=== PATIENT | female | born 1965 | race Caucasian/White ===

== ENCOUNTER → 2016-09-28 | Outpatient (CLI) | payer MEDICARE, MEDICAID ==
[2015-04-06 06:05] VITALS: BP 112/75
[~2016-09-28] MED LIST: CEPH-263 PO; CIPR500T PO; DOCU-27 PO; ESCI10TA PO; FLUT1DIS5 IH; Hydrocodone Bit/Acetaminophen PO; METR500T4 PO; POLY17PO5 PO; SIMV40TA3 PO
--- NOTE | 2016-09-28 14:48 | RAD ---
DATE: 09/28/2016 EXAM: MAMMO [facility] LT HISTORY: 6 month follow-up COMPARISON: A screening examination 02/02/2016. Note is made of the diagnostic examination 02/11/2016 This study was interpreted with the benefit of Computerized Aided Detection (CAD). FINDINGS: The breast parenchyma Is heterogeneiously dense, which could reduce sensitivity of mammography. Breast parenchyma level C. Punctate calcifications are seen just medial to the left breast. The appearance is similar to the previous examinations. There has not been a significant change. They do appear, however, more pronounced than on a study 12/29/2014. The calcifications remain indeterminate. Biopsy should be considered. IMPRESSION: Indeterminate calcifications left breast. Biopsy should be considered. The recommendation for biopsy was to be communicated by the technologist performing the examination to the patient. This examination was interpreted off site. BI-RADS CATEGORY: 4 SUSPICIOUS ABNORMALITY-BIOPSY SHOULD BE CONSIDERED RECOMMENDED FOLLOW-UP: BIO BIOPSY RECOMMENDED PQRS compliance statement: Patient information was entered into a reminder system with a target due date soon for the next mammogram. Mammography is a sensitive method for finding small breast cancers, but it does not detect them all and is not a substitute for careful clinical examination. A negative mammogram does not negate a clinically suspicious finding and should not result in delay in biopsying a clinically suspicious abnormality. "Our facility is accredited by the [employer] Mammography Program."
== END | disposition home or self-care (01) ==
LOC: MAMMO 13:12
PROVIDERS: ATTEND Family Medicine
DX: R92.1 Mammographic calcification found on diagnostic imaging of breast (principal)
CPT/HCPCS: G0206; G0279; 77061; 77065

== ENCOUNTER → 2017-01-12 | Outpatient (CLI) | payer MEDICARE, MEDICAID ==
[2015-04-06 06:05] VITALS: BP 112/75
[~2017-01-12] MED LIST changes: +DOCU-109 PO; -DOCU-27 PO; -ESCI10TA PO; +ESCITALOPRAM OX10 MG PO; +IOHEXOL 240 MG/ML 50ML VIAL. ONE; +IOHEXOL 240 MG/ML 50ML VIAL. PO ONE; +IOHEXOL 300 MG/ML 75 ML VIAL. IV ONE; -METR500T4 PO; +METR500T8 PO
[2017-01-12] MEDS: IOHEXOL 300 MG/ML 75 ML VIAL. IV ONE (17:19)
--- NOTE | 2017-01-13 10:22 | RAD ---
CT abdomen and pelvis with contrast 01/12/2017 Clinical indication: Abdominal pain, diarrhea intermittently for 2 years. Comparison: CT abdomen and pelvis April 04, 2015. Technique: Multiple CT images were obtained of the abdomen and pelvis following uneventful intravenous administration of 75 mL Omnipaque 300. Coronal and sagittal reformations were obtained. PQRS Compliance Statement: One or more of the following individualized dose reduction techniques were utilized for this examination: 1. Automated exposure control 2. Adjustment of the mA and/or kV according to patient size 3. Use of iterative reconstruction technique Findings: Abdomen and pelvis: Heart size is normal. Tiny calcified granuloma in the left lung base. Liver, gallbladder, adrenal glands and pancreas are within normal limits. There are multiple calcified splenic granulomas. There is a stable 8 mm fat-containing lesion in the inferior pole the right kidney most compatible with benign angiomyolipoma. There is a stable 5 mm fat-containing lesion inferior pole of the left kidney also compatible with benign angiomyolipoma. No collecting system dilatation. Abdominal aorta is normal in caliber. Major portal, splenic and visualized upper superior mesenteric veins are widely patent. No retroperitoneal or mesenteric lymphadenopathy. No abdominal free fluid. Small and large bowel loops are normal in caliber without obstruction. Mildly distended and unopacified urinary bladder unremarkable. Uterus is present. No iliac or inguinal lymphadenopathy. No pelvic free fluid. There are no destructive osseous lesions. Impression: No CT etiology for patient's reported abdominal pain and diarrhea.
== END | disposition home or self-care (01) ==
LOC: CT 15:40
PROVIDERS: ATTEND Family Medicine
DX: R10.84 Generalized abdominal pain (principal); R19.7 Diarrhea, unspecified
CPT/HCPCS: 74177; Q9966; Q9967

== ENCOUNTER 2017-04-30 17:40 | Inpatient (IN) | payer MEDICARE, MEDICAID ==
[~2017-04-30] VITALS: Ht 162.6 cm; Wt 138.6 kg
[~2017-04-30 17:40] MED LIST changes: -IOHEXOL 240 MG/ML 50ML VIAL. ONE; -IOHEXOL 240 MG/ML 50ML VIAL. PO ONE; -IOHEXOL 300 MG/ML 75 ML VIAL. IV ONE
--- NOTE | 2017-04-30 18:58 | PHYS DOC ---
Past History Past Medical History: No Pertinent History Past Surgical History: No Surgical History Smoking: Non-smoker Alcohol Use: None Drug Use: None Adult General Chief Complaint Chief Complaint: SHORTNESS OF BREATH HPI HPI Patient is a 52-year-old female who presents to the ED with complaints of not feeling well. Patient has been "exhausted" for quite some time. She was sick with a sinus infection, then got a virus, then her "colitis" flared up and she has had diarrhea off-and-on. She can't eat much because of this. She's lost 20 pounds. She has abdominal pain and shaking when she is having diarrhea. Denies nausea or vomiting. She has not had diarrhea for a couple of days. Starting today, she "can't catch her breath". She has had chills. She feels short of breath. She does have a history of asthma but it doesn't feel like that. She's never had anything like this before. She also has a pressure type discomfort under her left rib cage. Also has never had that before. No exacerbating or alleviating factors. Patient denies cardiac history. She used to smoke, quit 17 years ago. Negative hypertension, she takes medication for "early diabetes". She does not know about her cholesterol. She had a colonoscopy in 2014 and was told she has "colitis", she does not know what type of colitis. Also has acid reflux. Patient has had craniotomy in the past for Chiari malformation. PCP Dr. Mohan Review of Systems Review of Systems Constitutional: She has felt feverish and has had chills Eyes: Denies change in visual acuity, redness, or eye pain [] HENT: Denies nasal congestion or sore throat [] Respiratory: As in history of present illness Cardiovascular: Pain under the left ribs as in history of present illness GI: As in history of present illness, she denies any blood in the stool : Denies dysuria or hematuria [] Musculoskeletal: Denies back pain or joint pain [] Integument: Denies rash or skin lesions [] Neurologic: Denies headache, focal weakness All other systems were reviewed and found to be within normal limits, except as documented in this note. Allergies Allergies Allergies Coded Allergies Type Severity Reaction Last Updated Verified morphine Allergy Intermediate 04/30/17 Yes prednisone Allergy Intermediate 04/30/17 Yes Physical Exam Physical Exam Constitutional: Well developed, well nourished, no acute distress, non-toxic appearance. Pulse ox on room air 99-100%. Not tachycardic. She does appear short of air or dyspneic when talking. HENT: Normocephalic, atraumatic, bilateral external ears normal, nose normal. [] Eyes: conjunctiva normal, no discharge. [] Neck: Normal range of motion, no stridor. [] Cardiovascular:Heart rate regular rhythm, no murmur [] Lungs & Thorax: Bilateral breath sounds clear to auscultation , no wheezes, no rales Abdomen: Bowel sounds normal, soft, no tenderness, no masses, no pulsatile masses. [] Skin: Warm, dry, no erythema, no rash. [] Extremities: No tenderness, no cyanosis, no clubbing, ROM intact, no edema. [] Neurologic: Alert and oriented X 3, normal motor function, no focal deficits noted. [] Current Patient Data Vital Signs Vital Signs Date Time Temp Pulse Resp B/P (MAP) Pulse Ox O2 Delivery O2 Flow Rate FiO2 04/30/17 18:01 98.5 70 20 100 Room Air EKG EKG 12-lead EKG read by me. Sinus rhythm. Heart rate 74. There are no acute ST or T wave changes indicative of ischemia or infarction. No STEMI. 1750[] Radiology/Procedures Radiology/Procedures One view portable chest x-ray read by me. Heart size is normal. Lung becker are clear. No acute findings.[] CT angiography of the chest read by the radiologist who called me with the results. Positive for pulmonary emboli. Course & Med Decision Making Course & Med Decision Making Pertinent Labs and Imaging studies reviewed. (See chart for details) 52-year-old female who has been sick for days or weeks with feeling exhausted and some diarrhea off and on with a history of "colitis". Today she began to feel short of air, can't catch her breath. Pulse ox on room air is 100% here in the ED. We will check some labs, EKG, chest x-ray. I am concerned about her complaints of pressure type pain under her left rib cage. Discussed this with the patient who is agreeable to this evaluation. EKG, chest x-ray, cardiac enzymes unrevealing. Patient's d-dimer is elevated. PE study was done which is positive for PE. Patient remained stable in the emergency department, visiting with family. Pulse ox on room air remained in the high 90s to 100%. Patient was treated with a dose of Lovenox. I discussed the case with Dr. Gannon, who will admit the patient. I wrote bridge orders. [] Dragon Disclaimer Dragon Disclaimer This electronic medical record was generated, in whole or in part, using a voice recognition dictation system. Departure Departure: Impression: Primary Impression: Pulmonary emboli Disposition: ADMITTED INPATIENT Admitting Physician: Cindy Gannon Condition: STABLE Referrals: YAZ MOHAN DO (PCP) REGGIE LAWRENCE MD Apr 30, 2017 18:58
[2017-04-30 19:03] LABS: BASO # 0.1 x10^3/uL (0.0-0.2); BASO % 1 % (0-3); EOS # 0.2 x10^3/uL (0.0-0.7); EOS % 2 % (0-3); HEMATOCRIT 36.5 % (36.0-47.0); LYMPH # 3.8 x10^3/uL (1.0-4.8); LYMPH % 39 % (24-48); MEAN CORPUSCULAR HEMOGLOBIN 27 pg (25-35); MEAN CORPUSCULAR HGB CONC 33 g/dL (31-37); MEAN CORPUSCULAR VOLUME 82 fL (79-100); MONO # 0.7 x10^3/uL (0.0-1.1); MONO % 7 % (0-9); NEUT # 4.9 x10^3uL (1.8-7.7); NEUT % 51 % (31-73); PLATELET COUNT 550 x10^3/uL (140-400); RED BLOOD COUNT 4.44 x10^6/uL (3.50-5.40); RED CELL DISTRIBUTION WIDTH 14.5 % (11.5-14.5); WHITE BLOOD COUNT 9.7 x10^3/uL (4.0-11.0)
--- NOTE | 2017-04-30 19:14 | EKG ---
[address] [address] Test Date: 2017-04-30 Test Time: 17:50:45 Pat Name: DESTINEE SANTOS Department: Room: Gender: F [employer]: CHRIS : 1965 Requested By: REGGIE LAWRENCE Order Number: [id number] Reading MD: Lamberto Trujillo MD Measurements Intervals Gepp Rate: 74 P: 35 WA: 136 QRS: -12 QRSD: 86 T: -5 QT: 420 QTc: 467 Interpretive Statements SINUS RHYTHM NON-SPECIFIC ST/T CHANGES Electronically Signed On 05-02-2017 16:35:13 [employer]SULT[employer] by Lamberto Trujillo MD
[2017-04-30 19:23] LABS: ALBUMIN 3.2 g/dL (3.4-5.0); ALBUMIN/GLOBULIN RATIO 0.7 (1.0-1.7); ALK PHOS 83 U/L (46-116); ALT (SGPT) 17 U/L (14-59); ANION GAP 10 (6-14); AST (SGOT) 15 U/L (15-37); BLOOD UREA NITROGEN 14 mg/dL (7-20); BUN/CREATININE RATIO 14 (6-20); CALCIUM 9.3 mg/dL (8.5-10.1); CARBON DIOXIDE 25 mmol/L (21-32); CHLORIDE 104 mmol/L (98-107); CREATINE KINASE 40 U/L (26-192); GFR 58.5; GLUCOSE 120 mg/dL (70-99); LIPASE 133 U/L (73-393); MAGNESIUM 2.1 mg/dL (1.8-2.4); POTASSIUM 3.4 mmol/L (3.5-5.1); SODIUM 139 mmol/L (136-145); TOTAL BILIRUBIN 0.6 mg/dL (0.2-1.0); TOTAL PROTEIN 7.8 g/dL (6.4-8.2)
[2017-04-30] MEDS ORDERED: IV NORMAL SALINE 1,000ML 1,000 ML IV ONE (19:45)
[2017-04-30] MEDS ORDERED: IOHEXOL 300 MG/ML 75 ML VIAL. IV ONE (20:15)
[2017-04-30] MEDS ORDERED: CONTRAST GIVEN MC PRN (20:15)
--- NOTE | 2017-04-30 20:58 | RAD ---
CT angiography chest with contrast HISTORY: Shortness of breath, elevated d-dimer, left-sided chest pain. TECHNIQUE: Helical CT imaging of the chest with 3-D MIP reconstructions of the pulmonary arteries to assess for emboli with 75 mL Omnipaque 300 intravenous contrast. FINDINGS: Filling defect right upper lobe pulmonary artery embolus to the lateral apex axial images 36-41 and coronal images 61-62 with additional embolus within the branches to the anterior segment axial images 44-47. No large central pulmonary artery embolus. Heart size normal. Thoracic aorta and esophagus unremarkable. No adenopathy in the chest. No adenopathy in the chest. Groundglass densities lower lobe likely atelectasis mosaic attenuation throughout the lungs could be indicative of areas of air trapping. Calcified granulomas left lower lobe. No pneumothorax. No pleural effusions. Bones unremarkable. IMPRESSION: 1. Small pulmonary artery emboli to the right upper lobe as described above. 2. Mosaic attenuation of the lungs with areas of lucency surrounded by groundglass atelectasis, could be indicative of small airways trapping from asthma or bronchiolitis. Critical results called to Dr. Lynn at 8:54 PM February 28, 2017. Exposure: One or more of the following individualized dose reduction techniques were utilized for this examination: 1. Automated exposure control 2. Adjustment of the mA and/or kV according to patient size 3. Use of iterative reconstruction technique Electronically signed by: Kevin Alicea MD (04/30/2017 8:55 PM) [facility]
[2017-04-30] MEDS ORDERED: ENOXAPARIN ** NOTE DOSE ** SYRINGE SQ ONE (21:00)
[2017-04-30 22:25] VITALS: BP 105/67
[2017-04-30 22:26] VITALS: BP 105/67
[2017-04-30] MEDS ORDERED: GABA-586 PO (23:08)
[2017-04-30] MEDS ORDERED: METF500T4 PO (23:08)
[2017-04-30] MEDS ORDERED: OMEP40CA5 PO (23:08)
[2017-04-30] MEDS ORDERED: DULO30CA2 PO (23:13)
[2017-05-01] MEDS: ALBUTEROL SULFATE 2.5 MG/3 ML NEBU. NEB SCH ×3 (05:42→16:00)
[2017-05-01 06:23] VITALS: BP 108/60
[2017-05-01] MEDS ORDERED: POTASSIUM CHLORIDE 20 MEQ TABLET.ER. PO ONE (06:30)
[2017-05-01 06:49] LABS: HEMATOCRIT 35.2 % (36.0-47.0); HEMOGLOBIN 11.7 g/dL (12.0-15.5); RED BLOOD COUNT 4.28 x10^6/uL (3.50-5.40); RED CELL DISTRIBUTION WIDTH 14.8 % (11.5-14.5); WHITE BLOOD COUNT 8.7 x10^3/uL (4.0-11.0)
[2017-05-01 06:59] LABS: ALBUMIN 3.3 g/dL (3.4-5.0); ALBUMIN/GLOBULIN RATIO 0.8 (1.0-1.7); CALCIUM 9.3 mg/dL (8.5-10.1); GFR 58.5; POTASSIUM 3.8 mmol/L (3.5-5.1); TOTAL BILIRUBIN 0.9 mg/dL (0.2-1.0); TOTAL PROTEIN 7.6 g/dL (6.4-8.2)
[2017-05-01] MEDS ORDERED: PANTOPRAZOLE 40 MG TABLET. PO SCH (07:30)
[2017-05-01] MEDS ORDERED: BUDESONIDE 0.5 MG/2 ML NEBU NEB SCH (08:00)
--- NOTE | 2017-05-01 08:27 | RAD ---
EXAM: Chest one view. HISTORY: Shortness of breath and chills. COMPARISON: 02/14/2012. FINDINGS: A frontal view of the chest is obtained. A marker on the left partially obscures the region of the left midlung. There are no confluent infiltrates. There is no pneumothorax or pleural effusion. The heart is not enlarged. IMPRESSION: 1. No confluent infiltrates.
[2017-05-01] MEDS ORDERED: DULoxetine HCL 30 MG CAPSULE.DR PO SCH (09:00)
[2017-05-01] MEDS ORDERED: ENOXAPARIN ** NOTE DOSE ** SYRINGE SQ SCH (09:00)
[2017-05-01] MEDS ORDERED: NON FORMULARY ITEM (Fluticasone/Salmeterol (Advair 500-50 Diskus) 1 EACH) IH SCH (09:00)
[2017-05-01] MEDS: GABAPENTIN 300 MG CAPSULE. PO SCH ×2 (09:03→13:17)
[2017-05-01 11:25] VITALS: BP 117/70
[2017-05-01 16:09] VITALS: BP 121/64
[2017-05-01] MEDS ORDERED: RIVA10TA PO (16:26)
[2017-05-01] MEDS ORDERED: RIVAROXABAN 15 MG TABLET. PO ONE (17:00)
--- NOTE | 2017-05-01 17:36 | HP ---
ADMIT DATE: HISTORY OF PRESENT ILLNESS: This is a 52-year-old female patient who came to the Emergency Room complaining of shortness of breath, feeling tired, exhausted and she was sick with sinus infection ____ her colitis flared up. She has had diarrhea off and on for almost a month. She cannot eat much because of this, she has lost about 20 pounds; however, her diarrhea has stopped about 2 days ago and she started having difficulty breathing and in her words she cannot catch her breath. She has had some chills. She feels short of breath. She does have history of bronchial asthma, but she does not feel like that. She has never had anything like this before. She has some discomfort in her chest, but has never had this before. There is nothing alleviating or exacerbating this feeling. She was evaluated in the Emergency Room. Her D-dimer was slightly elevated and she has had a CT scan of the chest with PE protocol, which showed that she has small pulmonary artery emboli in the right upper lobe and additional embolus within the branches to the anterior segment. No large central pulmonary artery emboli, heart size is normal. She was started on Lovenox 1 mg/kg and was admitted for further evaluation and treatment. PAST MEDICAL HISTORY: Significant for colitis diagnosed about in 2016. She had a colonoscopy done in [facility]. She has bronchial asthma, Chiari malformation and neuropathy of both upper extremities. PAST SURGICAL HISTORY: Significant for Chiari surgery. She had had craniotomy at [facility] for Chiari malformation, esophagogastroduodenoscopy and colonoscopy, breast biopsies and . ALLERGIES: She is allergic to MORPHINE AND PREDNISONE. MEDICATIONS: She is currently on following medications: She is on duloxetine or Cymbalta 30 mg once a day, Advair Diskus 500/50 one inhalation twice a day, gabapentin 300 mg 3 times a day, metformin 500 mg twice a day, omeprazole 40 mg once a day and simvastatin 40 mg at bedtime. FAMILY HISTORY: She has 4 brothers and 1 sister. Her sister has bronchial asthma. One of her brothers has severe osteoarthritis. Her father at age of 87 because of coronary artery disease. Mother is alive at the age of 88 and she has osteoarthritis and Alzheimer disease. SOCIAL HISTORY: She is and has 1 daughter and 1 son. She is an ex-smoker, quit 17 years ago. She does not drink alcohol or use any recreational drugs. Currently, she is disabled secondary to Chiari malformation. REVIEW OF SYSTEMS: The patient denied any blurring of vision, cataract, glaucoma or macular degeneration. Denied any earache, tinnitus or sensorineural deafness. Denied any sore throat, sore tongue, toothache, hoarseness of voice or difficulty swallowing. Denied any nausea, vomiting, but did complain of diarrhea, but no constipation. Denied any hematemesis, melena or hematochezia. Denied any dysuria, frequency or hematuria. Did complain of chest discomfort and shortness of breath, but no cough or phlegm, no diaphoresis. Did have chills, but no rigors, no fever. PHYSICAL EXAMINATION: GENERAL: On arrival to the Emergency Room, she was slightly pale, but no jaundice, cyanosis, or thyromegaly. No jugular venous distension. No limb edema. VITAL SIGNS: Her heart rate was 70, blood pressure was 105/67, temperature was 98.5, respiratory rate 20, and oxygen saturation was 97% on room air. HEENT: Showed normocephalic, atraumatic. NECK: Supple. HEART: Showed normal first and second sounds. No gallop, rub or murmur. CHEST: Clear to auscultation. No crepitation or rhonchi. ABDOMEN: Distended, soft, nontender. NEUROLOGIC: She was awake, alert, responding appropriately, all cranial nerves intact. EXTREMITIES: She moves extremities without difficulty. She ambulates without assistance or assistive device. LABORATORY DATA: While in the Emergency Room, she has had lab work, which showed a white cell count 9700, hemoglobin 12, hematocrit 36, MCV 82 and platelet count 550,000 with normal manual differential. Her chemistry showed a serum sodium 139, potassium 3.4, chloride 104, bicarbonate 25, anion gap of 10, BUN 14, creatinine 1, estimated GFR was 58 mL per minute. Her glucose was 120, calcium 9.3, magnesium was 2.1. Total bilirubin, AST, ALT, alkaline phosphatase were normal. Her total protein was 7.8, albumin 3.2, lipase was 133. Her prothrombin time was 11.6, INR 1.1. D-dimer was 0.72. While in the Emergency Room, she had a chest x-ray done, which showed that there are no confluent infiltrates, no pneumothorax or pleural effusion. The heart is not enlarged. However, the CT angio of the chest showed that there are filling defects in the right upper lobe pulmonary artery to the lateral apex and additional embolus within the branches to the anterior segment. No large central pulmonary artery embolus, heart size is normal, thoracic aorta and esophagus unremarkable. No adenopathy in the chest. There are ground-glass densities lower lobe, likely atelectasis. Mosaic attenuation throughout the lungs could be indicative of areas of air trapping. No pneumothorax and no pleural effusion. ASSESSMENT AND PLAN: The patient was admitted and continued her on medication as well as Lovenox 40 mg subq twice a day. We held her metformin. We will repeat her lab work tomorrow and switch her to either Coumadin or one of the newer anticoagulant and can be discharged home if stable. ALLIE MUÑOZ MD DR: JAVID/kristen JOB#: [id number] / [id number]
--- NOTE | 2017-05-01 19:28 | DS ---
DATE OF DISCHARGE: 05/01/2017 HOSPITAL COURSE: The patient is a 52-year-old female patient who was admitted with shortness of breath, and she was extensively investigated in the Emergency Room. D-dimer was elevated, so underwent CT angio of the chest, which showed that she has at least 2 pulmonary emboli in the right upper lobe, none in the central pulmonary arteries. She was started on Lovenox 140 mg twice a day and did very well. PHYSICAL EXAMINATION: GENERAL: When I saw her this afternoon, she looked well and was clearly in no apparent respiratory distress. On questioning her, denied any chest pain, denied any cough, phlegm or hemoptysis. When I examined her, she looked pale, but no jaundice, cyanosis, or thyromegaly. No jugular venous distension. No limb edema. VITAL SIGNS: Her heart rate was 81, blood pressure was 117/70, temperature was 97.8, respiratory rate 20, and oxygen saturation was 99% on room air. HEAD, EYES, EARS, NOSE AND THROAT: Normocephalic, atraumatic. NECK: Supple. HEART: Showed normal first and second heart sounds. No gallop, rub or murmur. CHEST: Clear to auscultation. No crepitation or rhonchi. ABDOMEN: Markedly distended, soft, nontender. NEUROLOGIC: She is awake, alert, responding appropriately. Cranial nerves intact. EXTREMITIES: She moves extremities without difficulty. She ambulates without assistance or assistive devices. Her intake over the last __ and output were incompletely recorded. LABORATORY DATA: Her white cell count was 8700, hemoglobin 12, hematocrit 35, MCV 82 and platelet count 509,000. Her chemistry showed a serum sodium is 139, potassium 3.8, chloride 103, bicarbonate 26, anion gap of 10, BUN 11, creatinine 1, estimated GFR was 58 mL per minute. Her glucose 124, calcium was 9.3. Her lactic acid is down to 1.5 micromole/liter, calcium was 9.3. Total bilirubin, AST, ALT, alkaline phosphatase were normal. Total protein was 7.6, albumin 3.3. DISCHARGE MEDICATIONS: The patient was discharged home to continue on Xarelto 15 mg twice a day for 21 days, then Xarelto 20 mg once a day for 6 months. She should also continue on her Cymbalta 30 mg once a day, Advair Diskus 500/50 one inhalation twice a day, gabapentin 300 mg 3 times a day, metformin 500 mg p.o. b.i.d., omeprazole 40 mg daily, Simvastatin 40 mg at bedtime. FINAL DISCHARGE DIAGNOSES: Pulmonary embolism for which she is now on Xarelto. Other medical problems include bronchial asthma, morbid obesity, chronic colitis, Chiari malformation, hyperlipidemia, type 2 diabetes. ALLIE MUÑOZ MD DR: JAVID/kristen JOB#: [id number] / [id number]
[2017-05-01] MEDS ORDERED: SIMVASTATIN 40 MG TABLET. PO SCH (21:00)
[2017-05-03] MEDS ORDERED: metFORMIN 500 MG TABLET PO SCH (08:00)
== END 2017-05-01 17:20 | disposition home or self-care (01) | DRG 176 ==
LOC: ER 17:40 → 1 SOUTH 21:17
PROVIDERS: ADMIT Family Medicine; ATTEND Family Medicine
DX: I26.99 Other pulmonary embolism without acute cor pulmonale (principal); E11.40 Type 2 diabetes mellitus with diabetic neuropathy, unspecified; Z68.43 Body mass index [BMI] 50.0-59.9, adult; E66.01 Morbid (severe) obesity due to excess calories; E78.5 Hyperlipidemia, unspecified; J45.909 Unspecified asthma, uncomplicated; K21.9 Gastro-esophageal reflux disease without esophagitis; J32.9 Chronic sinusitis, unspecified; K52.9 Noninfective gastroenteritis and colitis, unspecified; Z82.0 Family history of epilepsy and other diseases of the nervous system; Z82.49 Family history of ischemic heart disease and other diseases of the circulatory system; Z82.5 Family history of asthma and other chronic lower respiratory diseases; Z86.711 Personal history of pulmonary embolism; Z87.891 Personal history of nicotine dependence; Z88.8 Allergy status to other drugs, medicaments and biological substances; Z82.61 Family history of arthritis
CPT/HCPCS: 36415; 71010; 71275; 80053; 82553; 83605; 83690; 83735; 83880; 84484; 85025; 85027; 85379; 85610; 93005; 94640; J1650; J7613; J7626; Q9967; J7030

== ENCOUNTER → 2017-06-07 | Outpatient (CLI) | payer MEDICAID, MEDICARE ==
[~2017-06-07] MED LIST changes: +DULO30CA2 PO; +GABA-586 PO; +IOHEXOL 300 MG/ML 75 ML VIAL. IV ONE; +IOHEXOL 300 MG/ML 75 ML VIAL. ONE; +MECL25TA3 PO; +METF500T4 PO; +OMEP40CA5 PO; +RIVA10TA PO
[2017-06-07 15:08] LABS: BASO # 0.1 x10^3/uL (0.0-0.2); BASO % 1 % (0-3); EOS # 0.4 x10^3/uL (0.0-0.7); EOS % 4 % (0-3); HEMATOCRIT 35.6 % (36.0-47.0); HEMOGLOBIN 11.7 g/dL (12.0-15.5); LYMPH # 3.6 x10^3/uL (1.0-4.8); LYMPH % 32 % (24-48); MEAN CORPUSCULAR HEMOGLOBIN 27 pg (25-35); MEAN CORPUSCULAR HGB CONC 33 g/dL (31-37); MEAN CORPUSCULAR VOLUME 81 fL (79-100); MONO # 0.8 x10^3/uL (0.0-1.1); MONO % 7 % (0-9); NEUT # 6.2 x10^3uL (1.8-7.7); NEUT % 56 % (31-73); PLATELET COUNT 464 x10^3/uL (140-400); RED BLOOD COUNT 4.41 x10^6/uL (3.50-5.40); RED CELL DISTRIBUTION WIDTH 15.2 % (11.5-14.5); WHITE BLOOD COUNT 11.1 x10^3/uL (4.0-11.0)
[2017-06-07 15:23] LABS: ALBUMIN 3.4 g/dL (3.4-5.0); ALBUMIN/GLOBULIN RATIO 0.7 (1.0-1.7); CALCIUM 9.2 mg/dL (8.5-10.1); GFR 58.5; TOTAL BILIRUBIN 0.5 mg/dL (0.2-1.0)
--- NOTE | 2017-06-07 16:29 | RAD ---
Arterial duplex examination of the left upper extremity -Limited study Clinical indications: Left clavicle pain and inferior left neck pain that started today. Findings: Duplex sonography of the left common carotid artery and the left subclavian artery was performed including seals scale evaluation and color flow and waveform spectral analysis. Normal low resistance diastolic waveform is seen within the left common carotid artery peak systolic flow velocity measurement 90 cm/s. Normal high resistance diastolic waveform is seen within the left subclavian artery with a peak systolic flow velocity measurement of 90 cm/s. No flow limiting stenosis or occlusive disease of these 2 arteries is seen. IMPRESSION: No occlusive disease or stenosis of the left subclavian artery or left common carotid artery is seen. No aneurysm is seen.
--- NOTE | 2017-06-07 17:03 | RAD ---
CTA of the chest with and without contrast Clinical indications: Shortness of breath. History of pulmonary embolism. Technique: Noncontrast axial localizer was performed. After IV infusion of a total of 150 cc of Omnipaque 300, helical CT scanning of the chest was performed using the CT pulmonary embolism protocol. A coronal MIP reconstruction was generated. 2 scans had to be performed since there was not adequate opacification of the pulmonary arteries on the initial scan. PQRS Compliance Statement: One or more of the following individualized dose reduction techniques were utilized for this examination: 1. Automated exposure control 2. Adjustment of the mA and/or kV according to patient size 3. Use of iterative reconstruction technique Comparison: April 30, 2017. Findings: No pulmonary embolism is seen today. The previously seen right apical branch pulmonary embolism has resolved. No thoracic aortic dissection or focal aneurysmal dilatation is seen. Cardiomegaly is evident but no pericardial effusion is seen. No enlarged thoracic lymphadenopathy is seen. Bilateral groundglass lung infiltrates are again evident which most likely there is due to atelectasis given the decreased inspiration related to the patient's large body habitus. No lung mass is evident. No lung consolidation with air bronchograms is seen. No pleural effusion or pneumothorax is seen. The proximal brachial tree is patent. No osteolytic process is seen. No adrenal mass is evident. Small subcentimeter angiomyolipoma of the right kidney is seen. IMPRESSION: No pulmonary embolism is evident. The previously seen pulmonary embolism has resolved. Bilateral groundglass lung infiltrates most likely due to atelectasis given the decreased inspiration related to the patient's large body habitus. Cardiomegaly.
== END | disposition home or self-care (01) ==
LOC: LAB 14:26
PROVIDERS: ATTEND Family Medicine
DX: I51.7 Cardiomegaly (principal); R07.2 Precordial pain; R35.8 Other polyuria; M79.601 Pain in right arm; Z86.711 Personal history of pulmonary embolism; Z87.891 Personal history of nicotine dependence
CPT/HCPCS: 36415; 71275; 80053; 83880; 84443; 84484; 85025; 93931; Q9967

== ENCOUNTER → 2017-06-20 | Outpatient (CLI) | payer MEDICARE, OTHER ==
[~2017-06-20] MED LIST changes: -IOHEXOL 300 MG/ML 75 ML VIAL. IV ONE; -IOHEXOL 300 MG/ML 75 ML VIAL. ONE; -MECL25TA3 PO
--- NOTE | 2017-06-20 16:51 | CARD ---
MR#: [id number] Date of Study: 06/20/2017 Ordering Physician: YAZ MOHAN, Referring Physician: YAZ MOAHN, Tech: Toma Huggins [facility] APPROVED REPORT EXAM: Two-dimensional and M-mode echocardiogram with Doppler and color Doppler. Other Information Quality : Technically Difficult Technically limited study due to body habitus. INDICATION Dyspnea Hx: Recent Pulmonary Embolus 2D DIMENSIONS Left Atrium(2D)3.6 (1.6-4.0cm)IVSd1.0 (0.7-1.1cm) Aortic Root(2D)3.5 (2.0-3.7cm)LVDd6.0 (3.9-5.9cm) LVOT Diameter2.1 (1.8-2.4cm)PWd1.1 (0.7-1.1cm) LVDs3.4 (2.5-4.0cm)FS (%) 37.0 % SV129.5 ml Aortic Valve AoV Peak Darin.141.4cm/sAoV VTI32.1cm AO Peak GR.8.0mmHgLVOT Peak Darin.80.2cm/s AO Mean GR.5mmHgAVA (VMAX)2.00cm2 Mitral Valve MV E Zmnkaesu84.8cm/sMV DECEL LIIA675vq MV A Yejodnax19.0cm/sE/A Ratio1.0 Pulmonary Valve PV Peak Qzzjajpu57.8cm/sPV Peak Grad.4mmHg LEFT VENTRICLE The Left Ventricle is mildly dilated. There is borderline concentric left ventricular hypertrophy. Th e left ventricular systolic function is normal and the ejection fraction is within normal range. The Ejection Fraction is 60-65%. There is normal LV segmental wall motion. RIGHT VENTRICLE The right ventricle is normal size. There is normal right ventricular wall thickness. The right ventr icular systolic function is normal. ATRIA The left atrium size is normal. The right atrium size is normal. The interatrial septum is intact wit h no evidence for an atrial septal defect or patent foramen ovale as noted on 2-D or Doppler imaging. AORTIC VALVE The aortic valve is probably trileaflet. Doppler and Color Flow revealed trace aortic regurgitation. There is no significant aortic valvular stenosis. MITRAL VALVE The mitral valve is normal in structure and function. There is no evidence of mitral valve prolapse. There is no mitral valve stenosis. Doppler and Color-flow revealed trace mitral regurgitation. TRICUSPID VALVE The tricuspid valve is normal in structure and function. Doppler and Color Flow revealed trace tricus pid regurgitation. PULMONIC VALVE The pulmonary valve is normal in structure and function. Doppler and Color Flow revealed no pulmonic valvular regurgitation. GREAT VESSELS The aortic root is normal in size. The ascending aorta is normal in size. The IVC is normal in size a nd collapses >50% with inspiration. PERICARDIAL EFFUSION There is no evidence of significant pericardial effusion. Critical Notification Critical Value: No <Conclusion> The Left Ventricle is mildly dilated. The left ventricular systolic function is normal and the ejection fraction is within normal range. The Ejection Fraction is 60-65%. There is borderline concentric left ventricular hypertrophy. There is no significant aortic valvular stenosis. Doppler and Color Flow revealed trace aortic regurgitation. Doppler and Color-flow revealed trace mitral regurgitation. Doppler and Color Flow revealed trace tricuspid regurgitation. There is no evidence of significant pericardial effusion. Signed by : Vishal Gonzalez MD Electronically Approved : 06/20/2017 16:51:20
== END | disposition home or self-care (01) ==
LOC: ECHO 14:09
PROVIDERS: ATTEND Family Medicine
DX: I08.2 Rheumatic disorders of both aortic and tricuspid valves (principal); Z86.711 Personal history of pulmonary embolism
CPT/HCPCS: 93306

== ENCOUNTER 2017-07-07 15:58 | Emergency (ER) | payer MEDICARE ==
[2017-07-07 16:05] VITALS: BP 152/84
[2017-07-07] MEDS ORDERED: MECLIZINE 12.5 MG TABLET. PO PRN (16:30)
--- NOTE | 2017-07-07 16:42 | EKG ---
[address] [address] Test Date: 2017-07-07 Test Time: 16:38:44 Pat Name: DESTINEE SANTOS Department: Room: Gender: F Inclusion Specialist: : 1965 Requested By: VAUGHN JERRY Order Number: [id number] Reading MD: Lamberto Trujillo MD Measurements Intervals [place] Rate: 68 P: 0 NH: 146 QRS: -15 QRSD: 84 T: -2 QT: 428 QTc: 460 Interpretive Statements SINUS RHYTHM NON-SPECIFIC ST/T CHANGES Electronically Signed On 07-11-2017 17:14:18 SENIOR VICE PRESIDENT by Lamberto Trujillo MD
--- NOTE | 2017-07-07 16:44 | PHYS DOC ---
Past History Additional Past Medical Histor: cardiomegaly, colitis, PE Past Surgical History: No Surgical History Smoking: Non-smoker Alcohol Use: None Drug Use: None Adult General Chief Complaint Chief Complaint: DIZZY/LIGHT HEADED [facility] 52-year-old female patient complaining of episodes of electrical shock feeling to her head since yesterday afternoon that repeated frequently as a dizziness feeling without any headache. Patient complaining of dizziness with episode of electrical shock to her head without headache, nausea, fever and chills, focal neuro deficit. Patient denies urinary symptom, vomiting and diarrhea, urinary symptom. Patient states her dizziness started when she was standing up but right now even with supine position she feels dizzy. Patient states she had mild episodes of dizziness previously but since yesterday it is getting worse than usual. Patient states she has had chronic chest pain and shortness of breath since April 2017 after she diagnosed with cardiomegaly and PE. Review of Systems Review of Systems Constitutional: Denies fever or chills [] Eyes: Denies change in visual acuity, redness, or eye pain, reports blurred vision [] HENT: Denies nasal congestion or sore throat [] Respiratory: Denies cough or shortness of breath [] Cardiovascular: No additional information not addressed in HPI [] GI: Denies abdominal pain, nausea, vomiting, bloody stools or diarrhea [] : Denies dysuria or hematuria [] Musculoskeletal: Denies back pain or joint pain [] Integument: Denies rash or skin lesions [] Neurologic: Denies headache, focal weakness or sensory changes , reports dizziness[] Endocrine: Denies polyuria or polydipsia [] All other systems were reviewed and found to be within normal limits, except as documented in this note. Current Medications Current Medications Current Medications Medications (Trade) Dose Ordered Sig/Amador Start Time Stop Time Status Last Admin Dose Admin Meclizine HCl (Antivert) 25 mg PRN Q6HRS PRN 07/07/17 16:30 Allergies Allergies Allergies Coded Allergies Type Severity Reaction Last Updated Verified morphine Allergy Intermediate 04/30/17 Yes prednisone Allergy Intermediate 04/30/17 Yes Physical Exam Physical Exam Constitutional: Well developed, well nourished, mild distress, non-toxic appearance, morbidly obese. [] HENT: Normocephalic, atraumatic, bilateral external ears normal, oropharynx moist, no oral exudates, nose normal. [] Eyes: PERRLA, EOMI, conjunctiva normal, no discharge. [] Neck: Normal range of motion, no tenderness, supple, no stridor. [] Cardiovascular:Heart rate regular rhythm, no murmur [] Lungs & Thorax: Bilateral breath sounds clear to auscultation [] Abdomen: Bowel sounds normal, soft, no tenderness, no masses, no pulsatile masses. [] Skin: Warm, dry, no erythema, no rash. [] Back: No tenderness, no CVA tenderness. [] Extremities: No tenderness, no cyanosis, no clubbing, ROM intact, no edema. [] Neurologic: Alert and oriented X 3, normal motor function, normal sensory function, no focal deficits noted. [] Psychologic: Affect normal, judgement normal, mood normal. [] EKG EKG [EKG interpreted by me. EKG at 1638 showed normal sinus rhythm at rate of 68, left mckay axis, poor R-wave progress in anteroseptal leads, no ST and T-wave elevation] Radiology/Procedures Radiology/Procedures CT head and chest x-ray reported by radiologist as unremarkable Course & Med Decision Making Course & Med Decision Making Pertinent Labs and Imaging studies reviewed. (See chart for details) Evaluation of patient in ER showed 52-year-old female patient with history of PE on Xarelto complaining of episodes of dizziness since yesterday that was worse than her previous episodes of dizziness. Patient had unremarkable physical exam except for morbid obesity. CT head, chest x-ray, EKG, labs was unremarkable. Patient felt better with meclizine. Plan discharge patient home with diagnosis of benign positional vertigo. Prescription for meclizine was given and patient instructed to follow-up with her primary care physician. Dragon Disclaimer Dragon Disclaimer This electronic medical record was generated, in whole or in part, using a voice recognition dictation system. Departure Departure: Impression: Primary Impression: Benign positional vertigo Additional Impression: Morbid obesity Disposition: HOME, SELF-CARE (at 1810) Condition: IMPROVED Referrals: YAZ MOHAN DO (PCP) Patient Instructions: Benign Positional Vertigo Additional Instructions: Drink plenty of liquids Follow-up with your primary care physician in 3-5 days Return to ER if not getting better Scripts Meclizine Hcl (MECLIZINE HCL) 25 Mg Tablet 1 TAB PO PRN TID, #30 TAB Prov: VAUGHN JERRY MD 07/07/17 Problem Qualifiers VAUGHN JERRY MD Jul 07, 2017 16:44
--- NOTE | 2017-07-07 17:00 | RAD ---
Portable chest, 07/07/2017: History: Dizziness Comparison is made to a study from 04/30/2017. The heart size and pulmonary vascularity are normal. No pulmonary infiltrates are seen. There is no evidence of pleural fluid. IMPRESSION: No acute cardiopulmonary abnormality is detected.
--- NOTE | 2017-07-07 17:03 | RAD ---
Indication: Dizziness today. Technique: Noncontrast CT head was obtained. Comparison is from April 05, 2016. One or more of the following individualized dose reduction techniques were utilized for this examination: 1. Automated exposure control 2. Adjustment of the mA and/or kV according to patient size 3. Use of iterative reconstruction technique Findings: The ventricles are normal in size and configuration for age. There is no acute intracranial hemorrhage or extra-axial fluid collection. There is no mass effect or midline shift. Carmona-white differentiation is preserved. There is no depressed skull fracture. The included paranasal sinuses and mastoid air cells are clear. IMPRESSION: No acute intracranial findings. Electronically signed by: Barry Ochoa MD (07/07/2017 4:59 PM) [id number]
[2017-07-07 17:44] LABS: BASO # 0.1 x10^3/uL (0.0-0.2); BASO % 1 % (0-3); EOS # 0.2 x10^3/uL (0.0-0.7); EOS % 3 % (0-3); HEMATOCRIT 33.4 % (36.0-47.0); LYMPH # 3.7 x10^3/uL (1.0-4.8); LYMPH % 44 % (24-48); MEAN CORPUSCULAR HEMOGLOBIN 26 pg (25-35); MEAN CORPUSCULAR HGB CONC 33 g/dL (31-37); MEAN CORPUSCULAR VOLUME 80 fL (79-100); MONO # 0.6 x10^3/uL (0.0-1.1); MONO % 8 % (0-9); NEUT # 3.8 x10^3uL (1.8-7.7); NEUT % 45 % (31-73); PLATELET COUNT 451 x10^3/uL (140-400); WHITE BLOOD COUNT 8.4 x10^3/uL (4.0-11.0)
[2017-07-07 18:07] LABS: ALBUMIN 3.4 g/dL (3.4-5.0); ALBUMIN/GLOBULIN RATIO 0.7 (1.0-1.7); CALCIUM 9.5 mg/dL (8.5-10.1); CREATININE 0.8 mg/dL (0.6-1.0); GFR 75.6; MAGNESIUM 2.2 mg/dL (1.8-2.4); POTASSIUM 4.2 mmol/L (3.5-5.1); TOTAL BILIRUBIN 0.5 mg/dL (0.2-1.0)
[2017-07-07] MEDS ORDERED: MECL25TA3 PO (18:13)
== END 2017-07-07 18:25 | disposition home or self-care (01) ==
LOC: ER 15:58
DX: H81.10 Benign paroxysmal vertigo, unspecified ear (principal); E66.01 Morbid (severe) obesity due to excess calories; G89.29 Other chronic pain; I51.5 Myocardial degeneration; Z88.5 Allergy status to narcotic agent; Z88.8 Allergy status to other drugs, medicaments and biological substances
CPT/HCPCS: 36415; 70450; 71045; 80053; 83735; 83880; 84484; 85025; 85610; 85730; 93005; 99285-25

== ENCOUNTER → 2018-04-26 | Outpatient (CLI) | payer MEDICARE ==
[~2018-04-26] MED LIST changes: +MECL25TA3 PO; +METF500T16 PO; -METF500T4 PO; +METR-84 PO; -METR500T8 PO
--- NOTE | 2018-04-30 10:04 | RAD ---
DATE: 04/26/2018 EXAM: DIGITAL SCREEN BILAT W/CAD HISTORY: Routine screening COMPARISON: 09/28/2016, 02/11/2016, 02/02/2016 This study was interpreted with the benefit of Computerized Aided Detection (CAD). Breast Density: HETERO The breast parenchyma is heterogenously dense, which could reduce sensitivity of mammography. Breast parenchyma level C. FINDINGS: The breasts are heterogeneously dense and multinodular in character. There is a cluster of 2 nodules in the posterior aspect of the upper inner quadrant of the left breast which have increased in size. The largest of these now measures 2.5 cm. There is an 8 mm nodule in the posteromedial right breast at the 3-4:00 location which appears to have increased slightly in size. Other small nodules in the upper posterior aspect of the right breast seen on the oblique view appears stable when compared to the previous exam of 02/02/2016. There are microcalcifications in both breasts which are most numerous on the left. These appear unchanged. A new breast biopsy marker is noted superiorly in the left breast. The patient reports benign results. Correlation with the precise pathologic findings is suggested. No new suspicious microcalcifications are seen. IMPRESSION: 1. Heterogeneous, multinodular breasts compatible with fibrocystic disease. 2. Enlarging breast nodules medially in the left breast and to a lesser degree on the right. Sonographic evaluation is suggested. 3. Stable microcalcifications, some of which have apparently been biopsied since 09/28/2016. BI-RADS CATEGORY: 0 INCOMPLETE: NEEDS ADDITIONAL IMAGING EVALUATION AND/OR PRIOR MAMMOGRAMS FOR COMPARISON. RECOMMENDED FOLLOW-UP: ADD ADDITIONAL IMAGING PQRS compliance statement: Patient information was entered into a reminder system with a target due date for the next mammogram. Mammography is a sensitive method for finding small breast cancers, but it does not detect them all and is not a substitute for careful clinical examination. A negative mammogram does not negate a clinically suspicious finding and should not result in delay in biopsying a clinically suspicious abnormality. "Our facility is accredited by the [employer] Mammography Program."
== END | disposition home or self-care (01) ==
LOC: MAMMO 08:23
PROVIDERS: ATTEND Family Medicine
DX: Z12.31 Encounter for screening mammogram for malignant neoplasm of breast (principal); N63.14 Unspecified lump in the right breast, lower inner quadrant
CPT/HCPCS: 77067

== ENCOUNTER 2020-08-07 14:46 | Emergency (ER) | payer MEDICARE ==
[~2020-08-07] VITALS: Ht 162.6 cm; Wt 159.0 kg
[~2020-08-07 14:46] MED LIST changes: -CIPR500T PO; +CIPR500T2 PO; +MECL-75 PO; -MECL25TA3 PO; +METR-34 PO; -METR-84 PO; +OMEP40CA45 PO; -OMEP40CA5 PO; +SIMV40TA18 PO; -SIMV40TA3 PO
--- NOTE | 2020-08-07 14:51 | PHYS DOC ---
Past History Additional Past Medical Histor: cardiomegaly, colitis, PE Past Surgical History: Smoking: Non-smoker Alcohol Use: None Drug Use: None Adult General HPI HPI Patient is a 55-year-old female presents emergency department with complaint of slow onset sternal chest pain that started while she was watching television this morning at approximately 1030. Patient states her pain initially started intermittent and now is continuous radiating a 4-5/10 pain on a 1-10 pain scale. Patient states this discomfort radiates to her left shoulder and down her left arm. patient describes her pain as a pressure with burning sensation. Patient states she has not taken any aspirin today and does not take any aspirin daily at home. Patient reports a surgical history of bilateral mastectomy 2 years ago, a lipoma removed from her back at the end of 2019. Patient reports she sees a pesticide use medical coordinator Dr. Clements from [facility], reports she called the office today and they told her to come here for a cardiac evaluation. Patient denies any previous MIs or stents. Patient states she had a negative tilt table test along with a negative cardiac stress test within the past 6 months. Patient denies any diaphoretic episodes, denies nausea, vomiting, diarrhea, abdominal pain or constipation. Patient denies chest congestion. Patient reports she is not short of breath but feels as if she is short of breath. Patient denies recent fever or chills, denies loss of taste or loss of smell, denies body aches, increased thirst or increased urination, denies urinary tract infection type signs and symptoms, denies vaginal discharge, denies rashes to her skin, denies any increased swelling of her extremities. Patient states she is not a cigarette smoker, denies drinking alcohol, denies illicit drug use. Review of Systems Review of Systems 14 body systems of review of systems have been reviewed. See HPI for pertinent positives and negative responses, otherwise all other systems are negative, nonpertinent or noncontributory. Allergies Allergies Allergies Coded Allergies Type Severity Reaction Last Updated Verified morphine Allergy Intermediate 04/30/17 Yes prednisone Allergy Intermediate 04/30/17 Yes Physical Exam Physical Exam Constitutional: Well developed, well nourished, no acute distress, non-toxic appearance. 51-year-old morbidly obese female in no apparent distress. Patient texting on phone and conversing with others on her cell phone during physical exam. HENT: Normocephalic, atraumatic, bilateral external ears normal, oropharynx mo ist, no oral exudates, nose normal. Eyes: PERRLA, EOMI, conjunctiva normal, no discharge. Neck: Normal range of motion, no tenderness, supple, no stridor. Cardiovascular:Heart rate regular rhythm, no murmur to auscultation. Lungs & Thorax: Bilateral breath sounds clear to auscultation all lung becker., Reproducible chest pain to palpation and deep inspiration from center chest through left pectoralis area. Abdomen: Bowel sounds normal, soft, no tenderness, no masses, no pulsatile masses. Skin: Warm, dry, no erythema, no rash. Back: No tenderness, no CVA tenderness. Extremities: No tenderness, no cyanosis, no clubbing, ROM intact, no edema. Distal cap refill less than 2 seconds, 2+/4 pulses. Neurologic: Alert and oriented X 3, normal motor function, normal sensory function, no focal deficits noted. Psychologic: Affect normal, judgement normal, mood normal. EKG EKG EKG performed at 1452 by house respiratory therapy staff, shows a normal sinus rhythm without ectopy at a heart rate of 69 bpm, W[place] interval 0.128, QTc interval 0.430, no acute STEMI, no ACS, no acute ischemia appreciated, EKG interpreted by ED attending physician Dr. Burleson. Radiology/Procedures Radiology/Procedures PATIENT: DESTINEE SANTOS ACCOUNT: [id number] : 1965 LOCATION: ER AGE: 55 SEX: F EXAM STATUS: REG ER ORD. PHYSICIAN: CHELSEY CHEUNG APRN REASON: CHEST PAIN PROCEDURE: PORTABLE CHEST 1V INDICATION: Reason: CHEST PAIN / Spl. Instructions: / History: COMPARISON: June 2017 FINDINGS: Single view of chest obtained. Enlarged cardiomediastinal silhouette. Surgical clips overlying the chest bilaterally. Appearance the lungs is similar to prior without a definite new region of consolidation. IMPRESSION: * Enlarged cardiomediastinal silhouette without a definite new region of consolidation. Electronically signed by: Tiffany Sargent MD (08/07/2020 3:26 PM) [id number] DICTATED AND SIGNED BY: TIFFANY SARGENT MD DATE: 08/07/20 1525 CC: CHELSEY CHEUNG APRN; YAZ MOHAN DO ~MTH0 0 Heart Score HEART Score for Chest Pain: HEART Score for Chest Pain Response (Comments) Value History Slighlty/Non-Suspicious 0 ECG Normal 0 Age >45 - < 65 1 Risk Factors 1 or 2 Risk Factors 1 Troponin < Normal Limit 0 Total 2 Risk Factors: Risk Factors: DM, Current or recent (<one month) smoker, HTN, HLP, family history of CAD, obesity. Risk Scores: Risk Factors: DM, Current or recent (<one month) smoker, HTN, HLP, family history of CAD, obesity. Course & Med Decision Making Course & Med Decision Making Pertinent Labs and Imaging studies reviewed. (See chart for details) 55-year-old female, vital signs reviewed, presents to the emergency department with concerns of chest pains that started while she was watching TV at approximately 1030 today. Patient states she called her primary care pesticide use medical coordinator Dr. Dewey who recommended she come to the emergency department for evaluation. Patient's physical examination is consistent with noncardiac chest wall pain. A cardiopulmonary work-up was initiated in the ED. Patient's chest x-ray was nonconcerning for acute cardiopulmonary process, patient's serum labs were negative for acute cardiopulmonary process, no signs of infectious process appreciated. Upon reexamination of the patient, patient states that she is now pain-free, has no more pain to movement with deep inspiration or expiration, however continues to have reproducible chest pain to palpation in the left pectoral muscular area. Patient states she wishes to go home now and keep her appointment with her pesticide use medical coordinator this coming Monday. Patient's chest pain most likely noncardiac chest wall pain related to physical examination findings. This is unlikely pulmonary embolus related to patient is not hypoxic, patient is in no respiratory distress, the patient is in no apparent distress. Cardiac labs and EKG did not support a cardiac process. This is unlikely a bacterial pneumonia or viral pneumonia per patient's chest x-ray and no complaints of COVID-19 virus symptoms along with patient's lung sounds clear to auscultation in all lung becker. Called and discussed patient case with patient's primary care pesticide use medical coordinator Dr. Clements's primary registered nurse BLANCA Haney who states Dr. Dewey is comfortable sending patient home as they have a follow-up appointment with her this coming Monday. Patient gave verbal understanding of the discharge home instructions, strict return to emergency department precautions and concerns, will keep her appointment with her pesticide use medical coordinator this coming Monday, had no further questions or concerns and was discharged home, patient remained stable throughout her ER stay, patient was pain-free and symptom-free at time of discharge. Dragon Disclaimer Dragon Disclaimer This electronic medical record was generated, in whole or in part, using a voice recognition dictation system. Departure Departure: Impression: Primary Impression: Chest wall pain Disposition: DC HOME SELF CARE/HOMELESS Condition: GOOD Referrals: YAZ MOHAN DO (PCP) Patient Instructions: Chest Wall Pain Additional Instructions: Please return to the emergency department immediately for return of symptoms or worsening symptoms. Please keep your appointment with your pesticide use medical coordinator this coming Monday. EMERGENCY DEPARTMENT GENERAL DISCHARGE INSTRUCTIONS Thank you for coming to [facility] (ED) today and trusting us with you care. We trust that you had a positivie experience in our Emergency Department. If you wish to speak to the department management, you may call the director at [phone]. YOUR FOLLOW UP INSTRUCTIONS ARE FOLLOWS: 1. Do you have a private Doctor? If you do not have a private doctor, please ask for a resource list of physicians or clinics that may be able to assist you with follow up care. 2. The Emergency Physician has interpreted your x-rays. The X-Ray specialist will also review them. If there is a change in the findings, you will be notified in 48 hours when at all possible. 3. A lab test or culture has been done, your results will be reviewed and you will be notified if you need a change in treatment. ADDITIONAL INSTRUCTIONS AND INFORMATION: 1. Your care today has been supervised by a physician who is specially trained in emergency care. Many problems require more than one evaluation for a complete diagnosis and treatment. We recommend that you schedule your follow up appointment as recommended to ensure complete treatment of you illness or injury. If you are unable to obtain follow up care and continue to have a problem, or if your condition worsens, we recommend that you return to the ED. 2. We are not able to safely determine your condition over the phone nor are we able to give sound medical advice over the phone. For these safety reasons, if you call for medical advice we will ask you to come to the ED for further evaluation. 3. If you have any questions regarding these discharge instructions please call the ED at [phone]. SAFETY INFORMATION: In the interest of safety, wellness, and injury prevention; we encourage you to wear your sealbelt, if you smoke; quite smoking, and we encourage family to use a protective helmet for bicycling and other sporting events that present an increased risk for head injury. IF YOUR SYMPTOMS WORSEN OR NEW SYMPTOMS DEVELOP, OR YOU HAVE CONCERNS ABOUT YOUR CONDITION; OR IF YOUR CONDITION WORSENS WHILE YOU ARE WAITING FOR YOUR FOLLOW UP APPOINTMENT; EITHER CONTACT YOUR PRIMARY CARE DOCTOR, THE PHYSICIAN WHOSE NAME AND NUMBER YOU WERE GIVEN, OR RETURN TO THE ED IMMEDIATELY. CHELSEY CHEUNG APRN Aug 07, 2020 14:51
[2020-08-07] MEDS ORDERED: ASPIRIN CHEWABLE 81 MG TABLET. PO ONE (15:15)
[2020-08-07 15:24] LABS: BASO # 0.1 x10^3/uL (0.0-0.2); BASO % 1 % (0-3); EOS # 0.3 x10^3/uL (0.0-0.7); EOS % 3 % (0-3); HEMOGLOBIN 11.4 g/dL (12.0-15.5); LYMPH # 3.2 x10^3/uL (1.0-4.8); LYMPH % 32 % (24-48); MEAN CORPUSCULAR HEMOGLOBIN 26 pg (25-35); MEAN CORPUSCULAR HGB CONC 32 g/dL (31-37); MEAN CORPUSCULAR VOLUME 82 fL (79-100); MONO # 0.8 x10^3/uL (0.0-1.1); MONO % 8 % (0-9); NEUT # 5.5 x10^3uL (1.8-7.7); NEUT % 56 % (31-73); PLATELET COUNT 459 x10^3/uL (140-400); RED BLOOD COUNT 4.38 x10^6/uL (3.50-5.40); RED CELL DISTRIBUTION WIDTH 15.5 % (11.5-14.5); WHITE BLOOD COUNT 9.8 x10^3/uL (4.0-11.0)
--- NOTE | 2020-08-07 15:28 | RAD ---
INDICATION: Reason: CHEST PAIN / Spl. Instructions: / History: COMPARISON: June 2017 FINDINGS: Single view of chest obtained. Enlarged cardiomediastinal silhouette. Surgical clips overlying the chest bilaterally. Appearance the lungs is similar to prior without a de finite new region of consolidation. IMPRESSION: * Enlarged cardiomediastinal silhouette without a definite new region of consolidation. Electronically signed by: Mynor Morales MD (08/07/2020 3:26 PM) [id number]
[2020-08-07 15:39] LABS: ANION GAP 12 (6-14); BLOOD UREA NITROGEN 13 mg/dL (7-20); BUN/CREATININE RATIO 14 (6-20); CALCIUM 9.1 mg/dL (8.5-10.1); CARBON DIOXIDE 28 mmol/L (21-32); CHLORIDE 103 mmol/L (98-107); CREATININE 0.9 mg/dL (0.6-1.0); GFR 65.2; GLUCOSE 113 mg/dL (70-99); SODIUM 143 mmol/L (136-145)
[2020-08-07 15:56] LABS: ALBUMIN 3.4 g/dL (3.4-5.0); ALBUMIN/GLOBULIN RATIO 0.8 (1.0-1.7); ALK PHOS 154 U/L (46-116); ALT (SGPT) 23 U/L (14-59); AST (SGOT) 17 U/L (15-37); MAGNESIUM 2.2 mg/dL (1.8-2.4); TOTAL BILIRUBIN 0.7 mg/dL (0.2-1.0); TOTAL PROTEIN 7.9 g/dL (6.4-8.2)
--- NOTE | 2020-08-07 15:56 | EKG ---
[facility] ED [facility] [address] [place] [address] Test Date: 2020-08-07 Test Time: 14:52:47 Pat Name: DESTINEE SANTOS Department: Room: Gender: F Director Of Counseling: : 1965 Requested By: CHELSEY CHEUNG Order Number: [id number] Reading MD: Measurements Intervals [place] Rate: 69 P: 0 NE: 128 QRS: -24 QRSD: 84 T: 28 QT: 400 QTc: 430 Interpretive Statements SINUS RHYTHM LEFTWARD AXIS OTHERWISE NORMAL ECG RI6.02 No previous ECG available for comparison
[2020-08-07 16:21] VITALS: BP 145/88
== END 2020-08-07 16:55 | disposition home or self-care (01) ==
LOC: ER 14:46
DX: R07.2 Precordial pain (principal); I51.7 Cardiomegaly; Z86.711 Personal history of pulmonary embolism; Z88.5 Allergy status to narcotic agent; Z88.8 Allergy status to other drugs, medicaments and biological substances
CPT/HCPCS: 36415; 71045; 80053; 82553; 83735; 83880; 84484; 85025; 85610; 85730; 93005; 99283

== ENCOUNTER → 2020-09-09 | Outpatient (CLI) | payer MEDICARE ==
--- NOTE | 2020-09-09 16:10 | RAD ---
PROCEDURE: XR KNEE _3 VIEWS_LT STUDY DATE: 09/09/2020 CLINICAL INDICATION / HISTORY: Left knee pain. TECHNIQUE: AP, lateral, and oblique views of the left knee. COMPARISON: Right knee x-rays of 09/11/2015 FINDINGS: The osseous structures are intact. The articular surfaces show mild irregularity in the pa tellofemoral compartment along the lateral aspect of the lateral femoral condyle. The joint space is maintained. No intra-articular loose bodies. The alignment is within normal limits. The soft tis sues are unremarkable. No obvious joint effusion. No radio-opaque foreign bodies are identified. IMPRESSION: Mild patellofemoral and lateral compartment degenerative changes in the left knee. No fra cture or malalignment. Electronically signed by: Don Chang MD (09/09/2020 4:08 PM) [id number]
== END ==
LOC: DXRAD 10:09
PROVIDERS: ATTEND Family Medicine
DX: M17.12 Unilateral primary osteoarthritis, left knee (principal)
CPT/HCPCS: 73562

== ENCOUNTER → 2021-06-23 | Outpatient (CLI) | payer MEDICARE ==
[2020-11-20 13:16] VITALS: BP 119/78
[~2021-06-23] MED LIST changes: -OMEP40CA45 PO; +OMEP40CA7 PO
--- NOTE | 2021-06-23 14:59 | RAD ---
EXAM: Cervical spine, 4 views; pelvis, single view; bilateral knees, single view; bilateral feet, 2 v iews; bilateral hands, 2 views. HISTORY: Rheumatoid arthritis. COMPARISON: None. FINDINGS: Cervical spine: 4 views of the surgical spine are obtained. There is straightening of cervical lordos is. There is no listhesis. There is mild multilevel endplate remodeling. The disc spaces are preserve d. There are surgical clips overlying the upper anterior chest wall. Pelvis: A frontal view of the pelvis is obtained. There is no fracture, dislocation or subluxation. T he femoral heads are normal in configuration and seated appropriately. The sacroiliac joints are inta ct. Bilateral knees: A frontal standing view both knees is obtained. There is mild bilateral medial denny rtment joint space narrowing and tricompartmental spurring. There is no fracture, dislocation or subl uxation. Bilateral feet: 2 views of both feet are obtained. There is no fracture, dislocation or subluxation. There are small left greater than right plantar spurs. There is no osseous erosion. There is no soft tissue calcification. Bilateral hands: 2 views of both hands are obtained. There is no fracture, dislocation or subluxation . There is no osseous erosion. There is no soft tissue calcification. IMPRESSION: 1. Mild multilevel degenerative change involving the cervical spine. 2. Mild medial compartment predominant osteoarthritis of both knees. 3. No acute osseous finding or convincing radiographic evidence of rheumatoid arthritis. Electronically signed by: Nikki Saeed MD (06/23/2021 2:57 PM) [id number]
== END ==
LOC: RAD 14:24
PROVIDERS: ATTEND Internal Medicine Rheumatology
DX: M17.0 Bilateral primary osteoarthritis of knee (principal); M47.812 Spondylosis without myelopathy or radiculopathy, cervical region; M76.892 Other specified enthesopathies of left lower limb, excluding foot; M76.891 Other specified enthesopathies of right lower limb, excluding foot
CPT/HCPCS: 72040; 72170; 73565; 73120-50; 73620-50